=== PATIENT | male | born 1935 | race Caucasian/White ===

== ENCOUNTER → 2016-07-04 | Outpatient (CLI) | payer MEDICARE ==
[~2016-07-04] MED LIST: ASPIRINEC PO; AVODART0.5 MG PO; CARDIZEM SR PO; DIOVAN HCT 80/11 TAB PO; PRILOSEC PO; PRILOSEC40 MG; PROZAC PO; REGLAN10 MG PO; VALSARTAN-HCTZ1 EACH PO; ZOCOR PO; ZOCOR10 MG PO
--- NOTE | ~2016-07-04 | CT5 ---
[facility] A Service [facility] RADIOLOGY TEXT RESULTS PATIENT: KIARA BERNABE LOCATION: [facility] : 37 UNIT #: [id number] AGE: [address]: Kye Hill MD SEX: M ORDER DR: [id number] [facility] [address] [place], [place] [address] [id number] O MR#: [id number] Acc #: [id number] NAME: KIARA BERNABE : 1935 SEX: M STUDY DATE/TIME: 07/04/2016 12:50 UNIT: [facility] ROOM: STUDY DESCRIPTION: CT Abdomen W Cont Attending Physician: Kye Hill M.D. Referring Physician: Kye Hill M.D. Ordering Physician: Kye Hill M.D. Primary Care Physician: [place] M.D. MEDICAL IMAGING REPORT This report is preliminary unless electronic signature is present EXAM CT abdomen with contrast INDICATIONS Restaging lung cancer. Lung cancer diagnosed 1998. Observation for metastatic disease. PROCEDURE Contrast-enhanced CT of the abdomen COMPARISON 07/02/[address] exam was performed with one or more of the following radiation dose reduction techniques: automatic control, adjustment of mA and/or kV according to patient size, and iterative reconstruction. FINDINGS Refer to the separately dictated chest CT for thoracic findings. Scattered hepatic cysts are similar to the previous study. Spleen pancreas gallbladder unremarkable. Bilateral renal cysts are also not significantly changed. Right adrenal mass measures 4.5 x 3 cm and is unchanged. A left adrenal mass measures 4.6 x 3.6 cm and is also very similar. Included bowel loops are nondilated. No aggressive appearing bone lesion. IMPRESSION 1. No convincing evidence for disease progression in the abdomen. 2. Multiple incidental findings detailed above are not significantly changed from the previous study Dictated by... [facility] A Service [facility] RADIOLOGY TEXT RESULTS PATIENT: KIARA BERNABE LOCATION: [facility] : 36 UNIT #: [id number] AGE: [address]: Kye Hill MD SEX: M ORDER DR: Rohit Villar M.D. THIS IS AN ELECTRONICALLY VERIFIED REPORT Rohit Villar M.D. at 07/08/2016 7:02 AM CRISTOFER/jigar TD: 07/05/2016 05:41 JOB #: [id number] MEDICAL IMAGING REPORT COPY
--- NOTE | ~2016-07-04 | CT55 ---
[facility] A Service of [facility] RADIOLOGY TEXT RESULTS PATIENT: KIARA BERNABE LOCATION: [facility] : 37 UNIT #: [id number] AGE: [address]: Kye Hill MD SEX: M ORDER DR: [id number] [facility] [address] [place], [place] [address] [id number] O MR#: [id number] Acc #: [id number] NAME: KIARA BERNABE : 1935 SEX: M STUDY DATE/TIME: 07/04/2016 13:44 UNIT: [facility] ROOM: STUDY DESCRIPTION: CT Chest W Con Attending Physician: Kye Hill M.D. Referring Physician: Kye Hill M.D. Ordering Physician: Kye Hill M.D. Primary Care Physician: [place] M.D. MEDICAL IMAGING REPORT This report is preliminary unless electronic signature is present EXAM CT chest with contrast. DATE OF EXAM 07/04/2016 INDICATIONS Previous lung cancer diagnosed in 1997. Restaging. Observation for recurrence or metastatic disease. PROCEDURE Contrast-enhanced CT of the chest. 100 mL of Isovue-370. COMPARISON 07/02/2015 TECHNIQUE NOTE: This CT exam was performed with one or more of the following radiation dose reduction techniques: automatic exposure control, adjustment of mA and/or kV according to patient size, and iterative reconstruction. FINDINGS Emphysema. An area of ground-glass opacity and interstitial thickening in the anterior right upper lobe measures up to 2.8 cm, previously 1.9 cm. An area of ground-glass opacity and interstitial thickening in the left lower lobe measures 2.3 x 1.8 cm, previously 1.9 x 1.8 cm. Visually it appears very similar. There is a 10 mm nodule in the posterior left upper lobe that is new compared with the prior. No adenopathy in the chest. No aggressive-appearing bone lesion. IMPRESSION [facility] A Service [facility] RADIOLOGY TEXT RESULTS PATIENT: KIARA BERNABE LOCATION: [facility] : 37 UNIT #: [id number] AGE: [address]: Kye Hill MD SEX: M ORDER DR: 1. New 10 mm nodule in the left upper lobe compared with 07/02/2015. It is suspicious for new lung malignancy. It is just at the size criteria for PET. PET would be helpful in evaluating for the possibility of malignancy. 2. Area of ground-glass opacity and interstitial thickening in anterior right upper lobe is larger than on the prior. This is also suspicious for malignancy, particularly bronchoalveolar carcinoma. 3. A similar-appearing area of interstitial thickening and ground-glass opacity in the left lower lobe is very similar to the previous study, and is indeterminate. It may be minimally larger. Recommend attention to this region on future followup studies. 4. No adenopathy is seen in the chest. Dictated by... Rhoit Villar M.D. THIS IS AN ELECTRONICALLY VERIFIED REPORT Rohit Villar M.D. at 07/08/2016 7:02 AM CRISTOFER/pat TD: 07/04/2016 23:09 JOB #: [id number] MEDICAL IMAGING REPORT COPY
[2016-07-04 15:10] LABS: POC - CREATININE 1.14 mg/dL (0.64-1.27); POC - GFR >60.0 mL/min (>60)
== END | disposition home or self-care (01) ==
LOC: CCAT 12:38
PROVIDERS: Internal Medicine Medical Oncology
DX: C79.51 Secondary malignant neoplasm of bone (principal); C78.7 Secondary malignant neoplasm of liver and intrahepatic bile duct; C34.90 Malignant neoplasm of unspecified part of unspecified bronchus or lung; R91.1 Solitary pulmonary nodule; J98.4 Other disorders of lung
CPT/HCPCS: 71260; 74160; 82565; Q9967